=== PATIENT | female | born 1990 | race African-American/Black ===

== ENCOUNTER 2025-01-13 13:53 | Emergency (ER) | payer SELFPAY ==
[~2025-01-13] VITALS: Ht 154.9 cm; Wt 71.2 kg
[2025-01-13] MEDS: FLUORESCEIN SODIUM OPHTH 1 EA STRIP OP ONE (14:24)
[2025-01-13] MEDS ORDERED: TETRAcaine 5 ML BOTTLE ONE (14:24)
[2025-01-13] MEDS ORDERED: FLUORESCEIN SODIUM OPHTH 1 EA STRIP ONE (14:24)
[2025-01-13] MEDS: TETRACAINE HCL 0.5% OPHTALMIC 15 ML BOTTLE OP ONE (14:25)
[2025-01-13] MEDS ORDERED: ERYT3.5O9 RIGHTEYE (14:32)
[2025-01-13 15:06] VITALS: BP 117/76; TEMP 98.7; O2SAT 100
== END 2025-01-13 15:07 | disposition home or self-care (01) ==
LOC: ER 13:53
DX: S05.01XA Injury of conjunctiva and corneal abrasion without foreign body, right eye, initial encounter (principal); Z88.1 Allergy status to other antibiotic agents; Z88.2 Allergy status to sulfonamides; X58.XXXA Exposure to other specified factors, initial encounter; Y93.89 Activity, other specified; Y92.89 Other specified places as the place of occurrence of the external cause; Y99.8 Other external cause status